=== PATIENT | female | born 1930 | race Caucasian/White ===

== ENCOUNTER 2016-07-11 19:59 | Emergency (ER) | payer OTHER ==
[2016-07-11] MEDS ORDERED: ACETAMINOPHEN 500 MG TAB ONE (20:26)
[2016-07-11] MEDS ORDERED: ACETAMINOPHEN 500 MG TAB PO ONE (20:29)
--- NOTE | 2016-07-11 21:14 | EDPHY ---
H & P Stated Complaint: Fell and hurt left shoulder denies hitting head Source: Patient Exam Limitations: No limitations - Personal History Current Tetanus/Diphtheria Vaccine: Yes Current Tetanus Diphtheria and Acellular Pertussis (TDAP): Yes - Medical/Surgical History Hx Asthma: No Hx Chronic Respiratory Disease: No Hx Diabetes: No Hx Cardiac Disease: Yes Hx Renal Disease: No Hx Cirrhosis: No Hx Alcoholism: No Hx HIV/AIDS: No Hx Splenectomy or Spleen Trauma: No Other PMH: Afib, osteoporosis - Social History Smoking Status: Never smoked Time Seen by Provider: 07/11/16 20:16 HPI/ROS: CHIEF COMPLAINT: left arm pain HISTORY OF PRESENT ILLNESS: 86-year-old female presents emergency department after a mechanical trip and fall in her assisted living facility today. Patient reports she was walking fast down the carpeted hallway to the movie theater when her shoe got stuck on the carpet and she tripped and fell onto her right knee then onto her left arm. Patient was able to stand up with assistance and ambulate back to her room, she complains of significant pain in her left upper arm. Patient is [id number]. She denies head strike, no loss of consciousness, remembers the entire accident, no neck pain. Patient is on Pradaxa for atrial fibrillation. Patient has known osteoporosis. She has an abrasion to her right knee, tetanus is up-to-date. REVIEW OF SYSTEMS: A comprehensive 10 point review of systems is otherwise negative aside from elements mentioned in the history of present illness. (Krys Reid) - Physical Exam Exam: Physical Exam Gen: Alert and Oriented, NAD HEENT: PERRL, moist mucous membranes NECK: No C-spine tenderness to palpation CV: regular rate and regular rhythm PULM: CTAB, no wheezes ABDOMEN: soft, non tender to palpation, BS present BACK: No CVA tenderness NEURO: Neurologically grossly intact EXTREMITIES: Left upper arm with swelling, tenderness to palpation, subjective decreased sensation to deltoid, no elbow tenderness, 2+ radial pulses, cap refill less than 2 seconds, right knee with contusion,ecchymosis and abrasion to anterior knee, 2+ pedal pulses, full range of motion. SKIN: Superficial abrasion to anterior right knee PSYCH: answers questions appropriately. (Krys Reid) Constitutional: Initial Vital Signs Temperature (C) 36.7 C 07/11/16 20:03 Heart Rate 79 07/11/16 20:03 Respiratory Rate 16 07/11/16 20:03 Blood Pressure 147/71 H 07/11/16 20:03 O2 Sat (%) 98 07/11/16 20:03 O2 Delivery Mode Room Air Allergies/Adverse Reactions: ciprofloxacin Allergy (Verified 07/11/16 20:07) Rash sulfamethoxazole Allergy (Verified 07/11/16 20:07) trimethoprim Allergy (Verified 07/11/16 20:07) Home Medications: Medication Instructions Recorded Dabigatran Etexilate Mesylate 75 mg PO 07/11/16 [Pradaxa] Digoxin 07/11/16 Hydrocodone/APAP 5/325 [[place] 1 tab PO Q4H PRN #7 tab 07/11/16 5/325] Metoprolol Carey/Hydrochlorothiaz 07/11/16 [Metoprolol ER-Hctz 25-12.5 mg] Medical Decision Making - Diagnostics Imaging: Left upper arm x-ray independently reviewed by me- Impression: Angulated, displaced middiaphyseal shaft left humerus fracture. Dictated By: Quincy Crum MD Right knee x-ray independently reviewed by me- Impression: No evidence for acute fracture. Dictated By: Quincy Crum MD (Krys Reid) ED Course/Re-evaluation: 930pm- Dr. Day with orthopedics at bedside. 2300-Dr. Day has placed the patient has coaptation splint. He did a reduction and repeat x-ray shows better alignment. Patient will be discharged home with prescription for [place]. She is given strict return precautions for any neurovascular compromise. She is placed in a sling. She is given follow-up information. (Krys Reid) Differential Diagnosis: Differential diagnosis includes but not limited to fracture, contusion, abrasion (Krys Reid) Other Provider: The patient wasevaluatedand managed by themidlevel provider. Idiscussed the patient's presentation and course with thephysicianassistantor nurse practitionerand agree with theevaluation. My co-signature indicates that I have reviewed this chart and I agree with the findings and plan of care as documented. I am the secondary supervisingphysician. (Ibis Flaherty) - Data Points Medications Given: Discontinued Medications Acetaminophen (Tylenol) 1,000 mg PO EDNOW ONE Stop: 07/11/16 20:30 Last Admin: 07/11/16 20:30 Dose: 1,000 mg Hydrocodone Bitart/Acetaminophen ([place] 5/325mg Prepack#6) 1 btl TAKEHOME EDNOW ONE Stop: 07/11/16 22:57 Last Admin: 07/11/16 23:09 Dose: 1 btl Departure - Departure Disposition: Home, Routine, Self-Care Clinical Impression: Left humeral fracture Condition: Good Instructions: Hydrocodone/Acetaminophen (By mouth), Arm Fracture in Adults (ED) Additional Instructions: Wear sling for comfort, take 650 mg of Tylenol every 8 hours with food for pain , take 1 [place] every 4-6 hours as needed for severe pain. This has Tylenol in it. Do not take more than 3000 mg of Tylenol in 24 hours. Follow up with Dr. day as discussed with him in the office in 2 weeks. Call tomorrow to schedule this appointment. Return to the emergency department for any numbness or tingling in your hand, pain that is not controlled, any new symptoms or concerns. Referrals: Keith Day MD [Medical Doctor] - As per Instructions (Orthopedist on-call) Prescriptions: Hydrocodone/APAP 5/325 [[place] 5/325] 1 tab PO Q4H PRN #7 tab PRN Reason: Pain, Moderate
--- NOTE | 2016-07-11 22:35 | PDCONSULT ---
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 also fell onto Right knee. No prior trauma to Left shoulder. PMHx: Afib on pradaxa. 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 ROS: in good health. Denies problems other than MSK hx. Recently decreasing pradaxa due to anticipated dental work. No new problems with head, pulmonary, cardiovascular, GI, , Skin, psych, neuro. PE: NAD. AxOx3. unlabored breathing. LUE: [place] A/R/U/M. 4/5 EPL/APB/FDS/FDP2,5/IO, 2+ rad pulse. Skin intact, no bleeding. mild edema. no evidence of hematoma Motion through fracture site. NO TTP at shoulder joint. RLE: abrasion on knee. Doesn't probe to bursa. No knee effusion. Active extensor complex without pain. No tenderness along knee cap including inferior pole Imaging: long, spiral fracture of L humerus. R knee: calcification vs. avulsion fragment, old of inferior patella. asymptomatic. no effusion seen. A/P: 86y F on pradaxa p/w L humerus fracture - Placed into coaptation splint. LORRAINE KEY. Sling for comfort - RTC in 2 weeks for films in splint and likely change to berry splint - Pain control - Plan for nonop treatment of humerus fracture. We discussed risks/benefits of op vs nonop treatment, and she agrees with nonop. She understands that goals are for union and basic alignment but risks are for nonunion/malunion.
[2016-07-11] MEDS ORDERED: HYDROCOD/APAP 5/325 PREPACK#6 BTL TAKEHOME ONE (22:56)
[2016-07-11 23:14] VITALS: BP 135/85; PULSE 82; RESP 12; TEMP 98.4; O2SAT 99
== END 2016-07-11 23:14 | disposition home or self-care (01) ==
DX: S42.302A Unspecified fracture of shaft of humerus, left arm, initial encounter for closed fracture (principal); W01.198A Fall on same level from slipping, tripping and stumbling with subsequent striking against other object, initial encounter; Y92.89 Other specified places as the place of occurrence of the external cause; Y99.8 Other external cause status; Y93.01 Activity, walking, marching and hiking
CPT/HCPCS: 73060; 73564; 99284; A4565

== ENCOUNTER 2016-07-15 18:17 | Emergency (ER) | payer OTHER ==
[2016-07-15 18:28] VITALS: RESP 16
--- NOTE | 2016-07-15 20:00 | EDPHY ---
H & P Time Seen by Provider: 07/15/16 18:55 HPI/ROS: CHIEF COMPLAINT: arm recheck HISTORY OF PRESENT ILLNESS: 86-year-old female presents to the emergency department recheck of her left arm. Patient was seen 2 days ago in the emergency department after mechanical trip and fall. She has a midshaft humeral fracture that was reduced and placed in a coaptation splint by Dr. day with orthopedics. The patient takes Pradaxa for atrial fibrillation, she is concerned about the bruising and swelling in her forearm and hand. She denies increased in pain, no numbness or tingling to her hand, no other complaints. REVIEW OF SYSTEMS: A comprehensive 10 point review of systems is otherwise negative aside from elements mentioned in the history of present illness. Smoking Status: Never smoked Physical Exam: GEN: Awake, alert, oriented, no acute distress RESP: nl resp effort MSK: Left arm and coaptation splint, Ramesh wraps removed, left forearm with swelling and ecchymosis that extends down to dorsal aspect of hands and stops at MCP joints, compartments are soft, 2+ radial pulses, sensation intact to light touch SKIN: No break in skin, no warmth, no evidence of cellulitis Constitutional: Initial Vital Signs Temperature (C) 36.7 C 07/15/16 18:24 Heart Rate 78 07/15/16 18:24 Respiratory Rate 16 07/15/16 18:24 Blood Pressure 167/85 H 07/15/16 18:24 O2 Sat (%) 96 07/15/16 18:24 O2 Delivery Mode Room Air Allergies/Adverse Reactions: ciprofloxacin Allergy (Verified 07/11/16 20:07) Rash sulfamethoxazole Allergy (Verified 07/11/16 20:07) trimethoprim Allergy (Verified 07/11/16 20:07) Home Medications: Medication Instructions Recorded Dabigatran Etexilate Mesylate 75 mg PO 07/11/16 [Pradaxa] Digoxin 07/11/16 Hydrocodone/APAP 5/325 [[place] 1 tab PO Q4H PRN #7 tab 07/11/16 5/325] Metoprolol Carey/Hydrochlorothiaz 07/11/16 [Metoprolol ER-Hctz 25-12.5 mg] MDM/Departure - MDM ED Course/Re-evaluation: 86-year-old female presents with the concerned of her bruising to her arm after a humerus fracture and splint placement in the emergency department 2 days ago. Patient takes Pradaxa for atrial fibrillation. She has no evidence of compartment syndrome, neurovascularly intact. I considered and discussed with the patient stopping her Pradaxa for few days though the risks of this and getting a stroke outweigh the concern of the ecchymosis and hematoma from the fracture. Patient has an appointment with Dr. Wynne on July 26, she will see Dr. Castellanos on Tuesday for re-evaluation of her arm. She has been given strict return precautions for any neurovascular compromise or compartment syndrome symptoms. Differential Diagnosis: Diagnosis considered but not limited to ecchymosis from fracture, compartment syndrome, cellulitis - Depart Disposition: Home, Routine, Self-Care Clinical Impression: Aftercare for cast or splint check or change Condition: Good Instructions: Splint Care (ED) Additional Instructions: Elevate your arm as much as possible on pillows, keep compression wrap on forearm, wrap starting at fingers up to your elbow with 50% overlap. Loosen this if it is too tight. Warm compresses to forearm, ice to your upper arm. Continue taking your pain medication as you have been. Follow up with Dr. Wynne as scheduled on July 26. Follow up with Dr. Castellanos on Tuesday for re- evaluation of hematoma on arm. Return to the emergency department for any pain that is not controlled, numbness or tingling in your hand, any other questions or concerns. Referrals: Elen Castellanos MD [Primary Care Provider] - As per Instructions Trung Wynne MD [Medical Doctor] - As per Instructions
[2016-07-15] MEDS ORDERED: HYDROCOD/APAP 5/325 PREPACK#6 BTL TAKEHOME ONE (20:12)
[2016-07-15 20:26] VITALS: BP 157/79; PULSE 82; TEMP 99.1; O2SAT 95
== END 2016-07-15 20:26 | disposition home or self-care (01) ==
DX: Z46.89 Encounter for fitting and adjustment of other specified devices (principal)

== ENCOUNTER 2016-07-19 11:13 | Emergency (ER) | payer OTHER ==
[2016-07-19 11:19] VITALS: TEMP 97.7
--- NOTE | 2016-07-19 11:35 | CPEKG ---
Heart Rate: 82 RR Interval: 732 QRSD Interval: 80 QT Interval: 328 QTC Interval: 383 QRS [place]: 57 T Wave [place]: -56 EKG Severity - ABNORMAL ECG - EKG Impression: ATRIAL FIBRILLATION, V-RATE 68-90 EKG Impression: ABNORMAL T, CONSIDER ISCHEMIA, DIFFUSE LEADS Electronically Signed By: Nick Gould 19-Jul-2016 15:29:25
[2016-07-19 11:50] VITALS: RESP 19
--- NOTE | 2016-07-19 12:05 | EDPHY ---
H & P Stated Complaint: L Chest pain, worse on inspiration, SOB since 0900 Time Seen by Provider: 07/19/16 12:05 - Personal History Current Tetanus/Diphtheria Vaccine: Unsure Current Tetanus Diphtheria and Acellular Pertussis (TDAP): Unsure - Medical/Surgical History Hx Asthma: No Hx Chronic Respiratory Disease: No Hx Diabetes: No Hx Cardiac Disease: Yes Hx Renal Disease: No Hx Cirrhosis: No Hx Alcoholism: No Hx HIV/AIDS: No Hx Splenectomy or Spleen Trauma: No Other PMH: Afib, osteoporosis, L humerous fx - Social History Smoking Status: Never smoked Constitutional: Initial Vital Signs Temperature (C) 36.5 C 07/19/16 11:17 Heart Rate 95 07/19/16 11:17 Respiratory Rate 18 07/19/16 11:17 Blood Pressure 113/53 L 07/19/16 11:17 O2 Sat (%) 96 07/19/16 11:17 O2 Delivery Mode Room Air Allergies/Adverse Reactions: ciprofloxacin Allergy (Verified 07/19/16 11:19) Rash sulfamethoxazole Allergy (Verified 07/19/16 11:19) trimethoprim Allergy (Verified 07/19/16 11:19) Home Medications: Medication Instructions Recorded Dabigatran Etexilate Mesylate 75 mg PO 07/11/16 [Pradaxa] Digoxin 07/11/16 Hydrocodone/APAP 5/325 [[place] 1 tab PO Q4H PRN #7 tab 07/11/16 5/325] Metoprolol Carey/Hydrochlorothiaz 07/11/16 [Metoprolol ER-Hctz 25-12.5 mg] Medical Decision Making - Diagnostics Imaging: Imaging Impressions Chest/Thorax CTA 07/19/16 12:47 Impression: 1. No evidence for pulmonary embolus. 2. Mild cardiomegaly. Probable mild congestive heart failure. Patchy groundglass opacity in both lower lobes, which could represent early pulmonary edema. 3. Stable apical pleural thickening bilaterally. Small pulmonary nodules bilaterally and evidence of prior granulomatous disease, which is stable and can be considered benign. 4. Other chronic findings as above. Results called and discussed with Dr. Nick Gould, on July 19, 2016 at 1355 hours. . ED Course/Re-evaluation: CHIEF COMPLAINT: Dyspnea, chest pain HISTORY OF PRESENT ILLNESS: The patient is an anticoagulated 86 y/o female complaining of left arm chest pain that radiates to her left shoulder since 09:00 this morning, about 3 hours ago. She has a history of atrial fibrillation and osteoporosis. She was recently evaluated here for a displaced left humerus fracture 8 days ago secondary to a fall. She was reduced and immobilized and discharged to follow up with orthopedics as an outpatient. She returned a few days later for a recheck due to ecchymosis and swelling of her left hand. This was thought secondary to her Pradaxa and she was discharged in good condition. Around 09:00 this morning, she developed left-sided chest and shoulder pain that is aggravated by deep inspiration and associated with poorly-localized back pain. She rates her pain 10/10 in severity. She denies weakness, paresthesias, fever, chills, recent illness, or other recent trauma. REVIEW OF SYSTEMS: A 10 point review of systems was performed and is negative with the exception of the elements mentioned in the history of present illness. PHYSICAL EXAM: HR, BP, O2 Sat, RR. Temp noted General Appearance: Alert, well hydrated, appropriate, and non-toxic appearing. Head: Atraumatic without scalp tenderness or obvious injury Eyes: Pupils equal, round, reactive to light and accommodation, EOMI, no trauma , no injection. Ears: Clear bilaterally, no perforation, normal landmarks Nose: Atraumatic, no rhinorrhea, clear. Throat: There is no erythema or exudates, no lesions, normal tonsils, mucus membranes moist. Neck: Supple, nontender, no lymphadenopathy. Respiratory: No retractions, no distress, no wheezes, and no accessory muscle use. Lung sounds are mildly diminished on the left side. Voluntary splinting Cardiovascular: Regular rate and rhythm, no murmurs, rubs, or gallops. Good capillary refill all extremities. Gastrointestinal: Abdomen is soft, nontender, non-distended, no masses, no rebound, no guarding, no peritoneal signs. Musculoskeletal: Normal active ROM of all extremities, atraumatic. Swelling and ecchymosis of left hand. Neurological: Alert, appropriate, and interactive. The patient has normal DTRs and non-focal cranial nerves, motor, sensory, and cerebellar exam. Skin: No rashes, good turgor, no nodules on palpation. Past medical history: atrial fibrillation - Pradaxa, osteoporosis, left humerus fracture Past surgical history: denies Family history: noncontributory Social history: Nonsmoker. family at bedside. Prior medical records reviewed including ED visit 07/15/16 for arm fracture recheck. DIAGNOSTICS/PROCEDURES/CRITICAL CARE TIME: CTA chest, left humerus x-ray. I viewed the images myself on the PACS system. The 12 lead EKG was interpreted by myself. Atrial fibrillation rate 82. See hard copy and/or "tracemaster" electronic copy for interpretation. DIFFERENTIAL DIAGNOSIS: The differential diagnosis for the patient's shortness of breath and hypoxemia included but was not limited to pneumonia, myocardial infarction, acute mountain sickness, high altitude pulmonary edema, congestive heart failure, and pulmonary embolus. MEDICAL DECISION MAKING: This is an anticoagulated 86 y/o female with recent left humerus fracture complaining of left-sided chest pain and dyspnea onset this morning. Besides ongoing ecchymosis and swelling in her left arm and minor diminished left breath sounds and voluntary splinting, her exam is unremarkable. Because she is currently on Pradaxa, her risk of thrombotic PE is less likely, though fat emboli is still possible. She only had extremity imaging on her first visit and it is possible she has rib injuries from the initial fall. Plan for pain management, chest CTA, IV, labs including d-dimer, BNP, and troponin. 1350: CTA negative for acute process other than CHF, which is consistent with her elevated BNP. No PE per Dr. Crum, radiologist. I discussed findings with her and the family and answered all her questions. They have a follow up appointment scheduled with Dr. Sherrell alfonso. Daughter requests repeat left humerus x-ray to reevaluate fracture prior to discharge home. X-ray is unchanged. Patient will be discharged home with script for pain medications and return precautions. They are comfortable with this plan. - Data Points Laboratory Results: Laboratory Results 07/19/16 11:35 07/19/16 11:35 07/19/16 07/19/16 07/19/16 11:35 11:35 11:35 WBC 14.59 10^3/uL H 10^3/uL (3.80-9.50) RBC 4.52 10^6/uL 10^6/uL (4.18-5.33) Hgb 14.0 g/dL g/dL (12.6-16.3) Hct 42.0 % % (38.0-47.0) MCV 92.9 fL fL (81.5-99.8) MCH 31.0 pg pg (27.9-34.1) MCHC 33.3 g/dL g/dL (32.4-36.7) RDW 14.4 % % (11.5-15.2) Plt Count 312 10^3/uL 10^3/uL (150-400) MPV 10.1 fL fL (8.7-11.7) Neut % (Auto) 85.0 % H % (39.3-74.2) Lymph % (Auto) 5.1 % L % (15.0-45.0) [place] % (Auto) 9.2 % % (4.5-13.0) Eos % (Auto) 0.1 % L % (0.6-7.6) Baso % (Auto) 0.1 % L % (0.3-1.7) Nucleat RBC Rel Count 0.0 % % (0.0-0.2) Absolute Neuts (auto) 12.41 10^3/uL H 10^3/uL (1.70-6.50) Absolute Lymphs (auto) 0.74 10^3/uL L 10^3/uL (1.00-3.00) Absolute Monos (auto) 1.34 10^3/uL H 10^3/uL (0.30-0.80) Absolute Eos (auto) 0.01 10^3/uL L 10^3/uL (0.03-0.40) Absolute Basos (auto) 0.02 10^3/uL 10^3/uL (0.02-0.10) Absolute Nucleated RBC 0.00 10^3/uL 10^3/uL (0-0.01) Immature Gran % 0.5 % % (0.0-1.1) Immature Gran # 0.07 10^3/uL 10^3/uL (0.00-0.10) D-Dimer 0.86 ug/mLFEU H ug/mLFEU (0.00-0.50) Sodium 134 mEq/L mEq/L (134-144) Potassium 4.5 mEq/L mEq/L (3.5-5.2) Chloride 98 mEq/L mEq/L (97-110) Carbon Dioxide 24 mEq/l mEq/l (22-31) Anion Gap 12 mEq/L mEq/L (8-16) BUN 25 mg/dL H mg/dL (7-23) Creatinine 1.0 mg/dL mg/dL (0.6-1.0) Estimated GFR 53 Glucose 160 mg/dL H mg/dL (70-100) Calcium 10.0 mg/dL mg/dL (8.5-10.4) Troponin I 0.013 ng/mL ng/mL (0-0.034) NT-Pro-B Natriuret Pep 2940 pg/mL H pg/mL (0-450) Medications Given: Discontinued Medications Morphine Sulfate (Morphine) 2 mg IVP EDNOW ONE Stop: 07/19/16 13:06 Last Admin: 07/19/16 13:06 Dose: 2 mg Ondansetron HCl (Zofran) 4 mg IVP EDNOW ONE Stop: 07/19/16 13:06 Last Admin: 07/19/16 13:06 Dose: 4 mg Departure - Departure Disposition: Home, Routine, Self-Care Clinical Impression: Chest pain Qualifiers: Chest pain type: other chest pain Qualified Code(s): R07.89 - Other chest pain ; R07.8 - Other chest pain Left humeral fracture Qualifiers: Encounter type: subsequent encounter Humerus Location: shaft Fracture type: closed Fracture morphology: transverse Fracture alignment: displaced Fracture healing: with routine healing Qualified Code(s): S42.322D - Displaced transverse fracture of shaft of humerus, left arm, subsequent encounter for fracture with routine healing Condition: Good Instructions: Arm Fracture in Adults (ED), Chest Pain (ED), Constipation (ED), High Fiber Diet (ED) Additional Instructions: 1. Use Vicodin as prescribed. You can use 1 pill every 6 hours. Take constipation precautions as soon as starting narcotics. Miralax, available over- the-counter, is a good option. 2. Follow up with your orthopedist as planned. 3. Return to the ED for any worsening of condition. Referrals: Elen Castellanos MD [Primary Care Provider] - As per Instructions Trung Wynne MD [Medical Doctor] - As per Instructions Report Scribed for: Nick Gould Report Scribed by: Mervat Norris Date of Report: 07/19/16 Time of Report: 12:19
[2016-07-19 12:28] LABS: % IMMATURE GRANULYOCYTES 0.5 % (0.0-1.1); ABSOLUTE IMMATURE GRANULOCYTES 0.07 10^3/uL (0.00-0.10); ADD DIFF? NO; ADD MORPH? NO; ADD SCAN? NO; ATYPICAL LYMPHOCYTE FLAG 0 (0-99); FRAGMENT RBC FLAG 0 (0-99); LEFT SHIFT FLG 10 (0-99); LIPEMIA HEMOLYSIS FLAG 80 (0-99); MEAN CELL HEMOGLOBIN CONCENTR. 33.3 g/dL (32.4-36.7); MEAN CELL VOLUME 92.9 fL (81.5-99.8); MEAN PLATELET VOLUME 10.1 fL (8.7-11.7); PLATELET CLUMPS FLAG 0 (0-99); PLATELET COUNT 312 10^3/uL (150-400); RED BLOOD CELL COUNT 4.52 10^6/uL (4.18-5.33); RED CELL DISTRIBUTION WIDTH 14.4 % (11.5-15.2)
[2016-07-19 12:42] LABS: ANION GAP 12 mEq/L (8-16); CARBON DIOXIDE 24 mEq/l (22-31); CHLORIDE 98 mEq/L (97-110); GLOMERULAR FILTRATION RATE 53; GLUCOSE 160 mg/dL (70-100); POTASSIUM 4.5 mEq/L (3.5-5.2); SODIUM 134 mEq/L (134-144)
[2016-07-19 12:55] LABS: TROPONIN I 0.013 ng/mL (0-0.034)
[2016-07-19] MEDS ORDERED: IOPAMIDOL (ISOVUE 370) 100 ML BTL IV ONE (12:58)
[2016-07-19] MEDS ORDERED: ONDANSETRON 4 MG/2 ML VIAL ONE (12:58)
[2016-07-19] MEDS ORDERED: ONDANSETRON 4 MG/2 ML VIAL IVP ONE (13:05)
[2016-07-19 15:32] VITALS: BP 125/72; PULSE 88; O2SAT 98
== END 2016-07-19 15:32 | disposition home or self-care (01) ==
DX: R07.89 Other chest pain (principal); S42.322D Displaced transverse fracture of shaft of humerus, left arm, subsequent encounter for fracture with routine healing; Z79.01 Long term (current) use of anticoagulants; W19.XXXD Unspecified fall, subsequent encounter
CPT/HCPCS: 71275; 73060; 93005; 96374; 96375; 99285; J2405; Q9967

== ENCOUNTER 2016-07-29 12:52 | Inpatient (IN) | payer OTHER ==
[2016-07-29] MEDS ORDERED: ONDANSETRON 4 MG/2 ML VIAL IVP PRN (15:20)
[2016-07-29] MEDS ORDERED: oxyCODONE IR 5 MG TAB PO PRN (15:20)
[2016-07-29] MEDS ORDERED: ONDANSETRON DISINTEGRATING 4 MG TAB PO PRN (15:20)
[2016-07-29 15:50] LABS: % IMMATURE GRANULYOCYTES 0.8 % (0.0-1.1); ADD DIFF? NO; ADD MORPH? NO; ADD SCAN? NO; ATYPICAL LYMPHOCYTE FLAG 50 (0-99); FRAGMENT RBC FLAG 0 (0-99); HEMATOCRIT 37.2 % (38.0-47.0); HEMOGLOBIN 12.5 g/dL (12.6-16.3); LEFT SHIFT FLG 10 (0-99); LIPEMIA HEMOLYSIS FLAG 80 (0-99); MEAN CELL HEMOGLOBIN 30.8 pg (27.9-34.1); MEAN CELL HEMOGLOBIN CONCENTR. 33.6 g/dL (32.4-36.7); MEAN CELL VOLUME 91.6 fL (81.5-99.8); MEAN PLATELET VOLUME 8.8 fL (8.7-11.7); PLATELET CLUMPS FLAG 10 (0-99); PLATELET COUNT 483 10^3/uL (150-400); RED BLOOD CELL COUNT 4.06 10^6/uL (4.18-5.33); RED CELL DISTRIBUTION WIDTH 14.3 % (11.5-15.2)
[2016-07-29 16:00] LABS: INR 2.22 (0.83-1.16); PROTIME(PATIENT) 24.8 SEC (12.0-15.0)
--- NOTE | 2016-07-29 16:22 | GHP ---
[f rep st] HISTORY AND PHYSICAL DATE OF ADMISSION: 07/29/2016 HISTORY OF PRESENT ILLNESS: The patient is a pleasant 86-year-old female with a history of atrial f ibrillation and a mechanical fall about 2 weeks ago with humerus fracture. She has done poorly sinc e. She was seen initially here on the , where she had an angulated, displaced mid diaphyseal lef t humerus fracture, images interpreted by me. She was sent home in a cast. She was seen by Orthope dics, who supervised the nonweightbearing left upper extremity. Since then, she has had some weakne ss, poor appetite, and constipation. She had increased pain on the , which is 8 days after inju ry, including chest and back pain. She presented to our ER, where she had a CAT scan negative for p ulmonary embolism, possible congestive heart failure. She also had an EKG at that time interpreted by me, showing AFib, which is chronic for her, with some inferior T-wave inversions. She continued to be at home and she had an appoint with Dr. Castellanos, her primary care physician today, where she was overall doing poorly and admission to the hospital was advised. The patient denies urgency, frequency, dysuria, fever, chills, PND, orthopnea, lower extremity edema , or weight gain. She had her last bowel movement this morning, but they are small and difficult to achieve. She has not noted palpitations or other chest pain. She has not been short of breath. She does not wear oxygen at home. She does not have fevers. It sounds like she has been spending a fair amount more time in bed than typical. Her baseline stat us is living independently at the [facility], and her daughter has been staying with her. She is much more sedentary than usual. REVIEW OF SYSTEMS: Complete 10-point review of systems was conducted and negative except as noted i n the HPI. PAST MEDICAL HISTORY: Atrial fibrillation, osteoporosis. ALLERGIES: Cipro and sulfa. MEDICATIONS: Metoprolol, Pradaxa, digoxin, multivitamin. SOCIAL HISTORY: No tobacco. Minimal alcohol. Lives at [facility]. FAMILY HISTORY: Daughter is present at the bedside, healthy. Parents are . PHYSICAL EXAM: VITAL SIGNS: Temp 36.8, blood pressure 107/50, pulse 72, breathing 18 times a minut e, 95% on room air. GENERAL: No acute distress. HEENT: Sclerae are anicteric. Oropharynx clear. Mucous membranes are moist. NECK: Supple. No lymphadenopathy or JVD. LUNGS: Clear to ausculta tion anterolaterally. HEART: S1, S2. It is actually quite regular. ABDOMEN: Soft, nontender, no ndistended. LOWER EXTREMITIES: Without edema. Her left upper extremity is in a cast. Her hand sh ows no edema. Cap refill is intact. IMAGING: She had a CTA of the chest. Images reviewed and interpreted by me on the 10th showing no pulmonary embolism, possible heart failure. She had a humerus x-ray also on the 10th showing good approximation of the angulated fragments with some slight displacement. LABORATORY DATA: She had labs on the 10th showing a white count of 14.5, hematocrit of 42, platelet s of 312,000. D-dimer 0.86. Normal chem 7 other than a slightly elevated BUN at 25, creatinine 1.0 with a baseline of that. She had a BNP of 2940 at that time, 10 days ago, with the only previous v alue being 6 years prior at 1640. I have discussed the case Dr. Elen Castellanos, reviewed and summarized prior records. ASSESSMENT/PLAN: An 86-year-old female with a recent humerus fracture who presented with failure to thrive. 1. Failure to thrive. This is multifactorial. I suspect this is most likely secondary to rapid de conditioning that happens in the elderly with long-bone fractures. We will have PT and OT see her. 2. Constipation. T.i.d. MiraLAX until she stools. 3. Atrial fibrillation. I wonder if she has been having rapid atrial fibrillation contributing to this presentation. I will follow her on telemetry. 4. Heart failure. Clinically, the patient does not have heart failure. I will check a BNP now. A t this time, I will not diurese her. 5. Previous labs showing possible dehydration. Await the labs today. She looks roughly euvolemic on labs, and I will not give her fluid until these labs are back. 6. Prophylaxis. She is on Pradaxa. 7. Fall in anticoagulated elderly patient. The patient at this point time has a CHADS-VASc of 3. With age and prior transient ischemic attack, we will continue her therapy at this time. DISPOSITION: Inpatient status. CODE: DNR. /[id number]/MODL
[2016-07-29] MEDS: ACETAMINOPHEN 500 MG TAB PO SCH ×2 (16:26→22:01)
[2016-07-29 16:37] LABS: ANION GAP 9 mEq/L (8-16); CALCIUM 8.4 mg/dL (8.5-10.4); CARBON DIOXIDE 23 mEq/l (22-31); CHLORIDE 100 mEq/L (97-110); CREATININE 0.7 mg/dL (0.6-1.0); DIGOXIN 1.3 ng/mL (0.8-2.0); GLOMERULAR FILTRATION RATE > 60; GLUCOSE 109 mg/dL (70-100); POTASSIUM 4.8 mEq/L (3.5-5.2); SODIUM 132 mEq/L (134-144)
[2016-07-29] MEDS: POLYETHYLENE GLYCOL 3350 17 GM PKT PO SCH (17:47)
[2016-07-29] MEDS: DABIGATRAN ETEXILATE MESYL 150 MG CAP PO SCH (22:00)
[2016-07-29] MEDS: METOPROLOL TARTRATE 25 MG TAB PO SCH (22:00)
[2016-07-30] MEDS: POLYETHYLENE GLYCOL 3350 17 GM PKT PO SCH ×3 (00:58→15:55)
[2016-07-30 04:39] LABS: % IMMATURE GRANULYOCYTES 0.7 % (0.0-1.1); ABSOLUTE IMMATURE GRANULOCYTES 0.07 10^3/uL (0.00-0.10); ADD DIFF? NO; ADD MORPH? NO; ADD SCAN? NO; ATYPICAL LYMPHOCYTE FLAG 50 (0-99); FRAGMENT RBC FLAG 10 (0-99); HEMOGLOBIN 11.8 g/dL (12.6-16.3); LEFT SHIFT FLG 0 (0-99); LIPEMIA HEMOLYSIS FLAG 80 (0-99); MEAN CELL HEMOGLOBIN 30.2 pg (27.9-34.1); MEAN CELL HEMOGLOBIN CONCENTR. 33.7 g/dL (32.4-36.7); MEAN CELL VOLUME 89.5 fL (81.5-99.8); MEAN PLATELET VOLUME 8.9 fL (8.7-11.7); PLATELET CLUMPS FLAG 0 (0-99); PLATELET COUNT 515 10^3/uL (150-400); RED BLOOD CELL COUNT 3.91 10^6/uL (4.18-5.33); RED CELL DISTRIBUTION WIDTH 14.4 % (11.5-15.2)
[2016-07-30 04:55] LABS: ANION GAP 6 mEq/L (8-16); CALCIUM 8.3 mg/dL (8.5-10.4); CARBON DIOXIDE 23 mEq/l (22-31); CHLORIDE 105 mEq/L (97-110); CREATININE 0.7 mg/dL (0.6-1.0); GLOMERULAR FILTRATION RATE > 60; GLUCOSE 91 mg/dL (70-100); POTASSIUM 4.3 mEq/L (3.5-5.2); SODIUM 134 mEq/L (134-144)
[2016-07-30] MEDS: ACETAMINOPHEN 500 MG TAB PO SCH ×3 (06:12→23:25)
[2016-07-30] MEDS: MULTIVITAMINS 1 EACH TAB PO SCH (07:47)
[2016-07-30] MEDS: DABIGATRAN ETEXILATE MESYL 150 MG CAP PO SCH ×2 (07:47→23:25)
[2016-07-30] MEDS ORDERED: Herbals/Supplements -Info Only PO SCH (09:00)
[2016-07-30] MEDS ORDERED: DIGOXIN 125 MCG TAB PO SCH (10:00)
--- NOTE | 2016-07-30 12:03 | HOSPPROG ---
Hospitalist Progress Note Assessment/Plan: 86 yo F w AF, recent humerus fracture admitted w FTT, apin FTT: suspect deconditioning in setting of advanced age and sitting for 2.5 weeks dig level normal, labs OK no evidence of uncontrolled AF on monitor AF w pause: had 5 second pause overnight she has good HR augmentation w exercise (89 after ambulation) so its not clear what role this has in her presentation, but I do wonder if it didnt contribute to or cause her original fall mike agents noted, held this AM cardiology to see constipation: resolved pain: well controlled on current meds dispo: inpt Subjective: case d/w dr calderon. tele: 5 second pause overnight (interp by me) Objective: Vital Signs Temp Pulse Resp BP Pulse Ox 36.4 C 69 20 114/52 L 95 07/30/16 07:38 07/30/16 07:38 07/30/16 07:38 07/30/16 07:38 07/30/16 07:38 Laboratory Results 07/30/16 03:54 07/30/16 03:54 07/29/16 07/30/16 07/31/16 05:59 05:59 05:59 Intake Total 800 Output Total 200 Balance 600 PT 24.8 SEC (12.0-15.0) H 07/29/16 15:43 INR 2.22 (0.83-1.16) H 07/29/16 15:43 - Physical Exam Constitutional: no apparent distress, appears nourished Eyes: PERRL, anicteric sclera Ears, Nose, Mouth, Throat: moist mucous membranes, hearing normal Cardiovascular: regular rate and rhythym, no murmur, rub, or gallop, No systolic murmur Respiratory: no respiratory distress, no rales or rhonchi Gastrointestinal: normoactive bowel sounds, soft, non-tender abdomen Genitourinary: No flores in urethra Skin: warm, normal color Musculoskeletal: other (L hand neurovascularly intact. sig edema over R bicep) Neurologic: AAOx3, sensation intact bilaterally Psychiatric: interacting appropriately, not anxious ICD10 Worksheet Patient Problems: Problems Problem Status Onset Atrial fibrillation Acute
[2016-07-30] MEDS: METOPROLOL TARTRATE 25 MG TAB PO SCH ×2 (12:26→19:56)
--- NOTE | 2016-07-30 13:13 | CPEKG ---
Heart Rate: 83 RR Interval: 723 QRSD Interval: 84 QT Interval: 352 QTC Interval: 414 QRS [place]: 59 T Wave [place]: 238 EKG Severity - ABNORMAL ECG - EKG Impression: ATRIAL FIBRILLATION, V-RATE 71-90 EKG Impression: REPOL ABNRM SUGGESTS ISCHEMIA, LATERAL LEADS Electronically Signed By: Laz Arambula 31-Jul-2016 10:45:52
--- NOTE | 2016-07-30 14:51 | PDCARCONS ---
Cardiology Consult Reason for Consult: Atrial fibrillation with lengthy pause Chief Complaint: No cardiovascular complaints. Requesting Physician: Hospitalist History of Present Illness: Patient is an 86 y/o female with long standing history of atrial fibrillation ( on Pradaxa, [id number] score of 4 for age, HTN (potentially), and sex) and possible HTN (on therapy), but no HLP, CAD, or DM, who presents back to [facility] with failure to thrive post relatively recent left humorous fracture. Patient reports today that she has been doing well, but fatigue and weakness along with constipation and general Failure to Thrive led to the admission, primarily for observation. Overnight, the patient was noted to have a five second pause on telemetry, and cardiology was called to discuss options. Today, the patient was resting comfortably in chair, eating lunch. Daughter was present in the room with the patient today. No complaints of chest pains or pressure, no PND or orthopnea. Compliance with prescribed medications has been good. No abnormal bleeding or bruising has been noted with ongoing use of Pradaxa. Ortho follow up is scheduled given the recent left upper extremity fracture. No symptoms were noted with the event (noted at 3-4 am this morning) . Given this finding, Hospitalist called on cardiology to provide recommendations. Review of systems (ten point) was unremarkable less that which was mentioned above. Patient is a DNR. History Information - Allergies/Home Medication List Allergies/Adverse Reactions: ciprofloxacin Allergy (Verified 07/19/16 11:19) Rash Sulfa (Sulfonamide Antibiotics) Allergy (Verified 07/29/16 14:09) Rash Home Medications: Digoxin [Lanoxin 125 mcg (RX)] 125 mcg PO DAILY10 07/11/16 [Last Taken 07/29/16] Dabigatran Etexilate Mesyl [Pradaxa 150 MG (*)] 150 mg PO BID 07/29/16 [Last Taken 07/29/16] Herbals/Supplements -Info Only 1 ea PO DAILY 07/29/16 [Last Taken Unknown] Hydrocodone/APAP 5/325 [[place] 5/325] 1 each PO Q6HRS PRN 07/29/16 [Last Taken 09:00 0.5 tab] Metoprolol Tartrate [Lopressor 25 mg (*)] 12.5 mg PO BID 07/29/16 [Last Taken ] Multivitamins [Multivitamin (*)] 1 each PO DAILY 07/29/16 [Last Taken Unknown] I have personally reviewed and updated: family history, medical history, social history, surgical history - Past Medical History atrial fibrillation - Surgical History Reports: no pertinent surgical hx - Family History Positive for: non-pertinent - Social History Smoking Status: Never smoked Alcohol Use: None Drug Use: None Cardiac History - Cardiac History Past Cardiac History: OTHER (atrial fibrillation) Cardiac Risk Factors: age > 65 Timing/Duration: Other (No symptoms reported) Severity Scale: 1 Location: other (No symptoms) Activities at Onset: none Modifying Factors: improves with: rest Associated Symptoms: denies symptoms OMARI Risk Evaluation age greater or equal to 65: yes greater or equal to 3 CAD risk factors: no known CAD(stenosis greater or eqaul to 50%): no ASA use in past 7 days: no severe angina(greater or equal to 2 episodes in 24hrs): no EKG ST changes greater or equal to 0.5mm: no positive cardiac marker: no Total Score: 1 OMARI Score: 4.7% risk Age in Years: 75 or older Sex: Female Congestive Heart Failure History: No Hypertension History: No Stroke/TIA/Thromboembolism History: No Vascular Disease History: No Diabetes Mellitus: No [id number] Score: 5 Physical Exam Temp Pulse Resp BP Pulse Ox 36.6 C 88 16 96/71 L 95 07/30/16 13:02 07/30/16 13:02 07/30/16 13:02 07/30/16 13:02 07/30/16 13:02 Constitutional: no apparent distress, appears nourished Eyes: PERRL Ears, Nose, Mouth, Throat: moist mucous membranes, hearing normal Cardiovascular: irregularly irregular, No systolic murmur, No edema Peripheral Pulses: 2+: dorsalis-pedis (R), dorsalis-pedis (L) Respiratory: no respiratory distress, no rales or rhonchi, clear to auscultation Gastrointestinal: normoactive bowel sounds Skin: warm, no induration, No rash Musculoskeletal: no muscle tenderness, other (left upper extremity with pain) Neurologic: AAOx3, sensation intact bilaterally, CN II-XII Intact Psychiatric: interacting appropriately, not anxious, not encephalopathic Lab and Imaging 07/30/16 03:54 07/30/16 03:54 WBC 10.50 10^3/uL (3.80-9.50) H 07/30/16 03:54 RBC 3.91 10^6/uL (4.18-5.33) L 07/30/16 03:54 Hgb 11.8 g/dL (12.6-16.3) L 07/30/16 03:54 Hct 35.0 % (38.0-47.0) L 07/30/16 03:54 MCV 89.5 fL (81.5-99.8) 07/30/16 03:54 MCH 30.2 pg (27.9-34.1) 07/30/16 03:54 MCHC 33.7 g/dL (32.4-36.7) 07/30/16 03:54 RDW 14.4 % (11.5-15.2) 07/30/16 03:54 Plt Count 515 10^3/uL (150-400) H 07/30/16 03:54 MPV 8.9 fL (8.7-11.7) 07/30/16 03:54 Neut % (Auto) 81.4 % (39.3-74.2) H 07/30/16 03:54 Lymph % (Auto) 6.7 % (15.0-45.0) L 07/30/16 03:54 [place] % (Auto) 9.5 % (4.5-13.0) 07/30/16 03:54 Eos % (Auto) 1.3 % (0.6-7.6) 07/30/16 03:54 Baso % (Auto) 0.4 % (0.3-1.7) 07/30/16 03:54 Nucleat RBC Rel Count 0.0 % (0.0-0.2) 07/30/16 03:54 Absolute Neuts (auto) 8.55 10^3/uL (1.70-6.50) H 07/30/16 03:54 Absolute Lymphs (auto) 0.70 10^3/uL (1.00-3.00) L 07/30/16 03:54 Absolute Monos (auto) 1.00 10^3/uL (0.30-0.80) H 07/30/16 03:54 Absolute Eos (auto) 0.14 10^3/uL (0.03-0.40) 07/30/16 03:54 Absolute Basos (auto) 0.04 10^3/uL (0.02-0.10) 07/30/16 03:54 Absolute Nucleated RBC 0.00 10^3/uL (0-0.01) 07/30/16 03:54 Immature Gran % 0.7 % (0.0-1.1) 07/30/16 03:54 Immature Gran # 0.07 10^3/uL (0.00-0.10) 07/30/16 03:54 PT 24.8 SEC (12.0-15.0) H 07/29/16 15:43 INR 2.22 (0.83-1.16) H 07/29/16 15:43 Sodium 134 mEq/L (134-144) 07/30/16 03:54 Potassium 4.3 mEq/L (3.5-5.2) 07/30/16 03:54 Chloride 105 mEq/L (97-110) 07/30/16 03:54 Carbon Dioxide 23 mEq/l (22-31) 07/30/16 03:54 Anion Gap 6 mEq/L (8-16) L 07/30/16 03:54 BUN 19 mg/dL (7-23) 07/30/16 03:54 Creatinine 0.7 mg/dL (0.6-1.0) 07/30/16 03:54 Estimated GFR > 60 07/30/16 03:54 Glucose 91 mg/dL (70-100) 07/30/16 03:54 Calcium 8.3 mg/dL (8.5-10.4) L 07/30/16 03:54 NT-Pro-B Natriuret Pep 2290 pg/mL (0-450) H 07/29/16 15:43 Digoxin 1.3 ng/mL (0.8-2.0) 07/29/16 15:43 EKG Interpretation: Positive for: other (atrial fibrillation with non specific ST/T wave changes noted) Telemetry: Atrial fibrillation. Pause of about 5 seconds was noted early this morning. No symptoms noted with this event A/P Assessment: Patient is an 86 y/o female with history of atrial fibrillation, on Pradaxa with rate control assistance from digoxin and metoprolol, who presented to [facility] with failure to thrive post left upper extremity fracture. Ongoing use of NOAC therapy without abnormal bleeding for CVA risk of 4-5% per year. Overnight, a 5 second, asymptomatic pause was noted. Underlying ST/T wave changes have also been noted. Long discussion with patient and daughter about several options given the finding noted. Plan: It is unclear if the patient might be having similar pauses at home given the time of the event and the lack of symptoms. Cessation of both digoxin and metoprolol would likely lead to both accelerated heart rates as well as blood pressure elevation. It is a class I indication for PPM implant with a five second, asymptomatic pause, but there is more to discuss. The patient is over the age of 80, but relatively highly functioning. Would consider PPM implant, but with notable baseline ST/T wave changes, angiography should be addressed as well. These options were discussed at length with patient and daughter both. At present, they do not wish to pursue these tests or treatment options. They understand the risks of not doing so. I have encouraged both to have follow up with cardiology, in the outpatient setting for further discussion about the tests and the ramifications of not pursuing cardiology recommendations. The patient is very coherent and aware of the potential benefits of testing as well as the risks of not testing. An in depth discussion has been had, and the patient and daughter wish to discuss further, and think about the options presented, which I feel is a very appropriate decision.
[2016-07-31] MEDS: POLYETHYLENE GLYCOL 3350 17 GM PKT PO SCH ×4 (01:12→20:40)
[2016-07-31] MEDS: ACETAMINOPHEN 500 MG TAB PO SCH ×3 (06:13→20:36)
[2016-07-31 09:08] LABS: % IMMATURE GRANULYOCYTES 0.6 % (0.0-1.1); ABSOLUTE IMMATURE GRANULOCYTES 0.08 10^3/uL (0.00-0.10); ADD DIFF? NO; ADD MORPH? NO; ADD SCAN? NO; ATYPICAL LYMPHOCYTE FLAG 80 (0-99); FRAGMENT RBC FLAG 0 (0-99); HEMATOCRIT 36.1 % (38.0-47.0); HEMOGLOBIN 12.2 g/dL (12.6-16.3); LEFT SHIFT FLG 0 (0-99); LIPEMIA HEMOLYSIS FLAG 90 (0-99); MEAN CELL HEMOGLOBIN 30.6 pg (27.9-34.1); MEAN CELL HEMOGLOBIN CONCENTR. 33.8 g/dL (32.4-36.7); MEAN CELL VOLUME 90.5 fL (81.5-99.8); MEAN PLATELET VOLUME 9.2 fL (8.7-11.7); PLATELET CLUMPS FLAG 10 (0-99); PLATELET COUNT 565 10^3/uL (150-400); RED BLOOD CELL COUNT 3.99 10^6/uL (4.18-5.33); RED CELL DISTRIBUTION WIDTH 14.3 % (11.5-15.2)
--- NOTE | 2016-07-31 09:59 | PDCARPN ---
Cardiology Progress Note Chief Complaint: asymptomatic bradycardia and 5 second ventricular pause during atrial fibrillation Assessment/Plan: Assessment: Atrial fibrillation, permanent Plan: - Patient had a ventricular pause of 5 seconds while on metoprolol and digoxin. Metoprolol and digoxin were held, last night she had ventricular rates down into the 30s (but the drugs had only been held for 24 hours.) I am going to discontinue the drugs. Had a discussion with both patient and her daughter regarding their wish to avoid pacemaker if possible. I am going to stop her Pradaxa and start her on Lovenox in anticipation of possibly needing permanent pacing, last dose of Lovenox Tuesday. As such, we need to wait for 48 hours prior to doing her pacemaker, this has tentatively been scheduled for Tuesday. If after stopping her metoprolol and digoxin, her heart rate stabilizes, we will leave her off these drugs and may be able to avoid pacemaker. However, if she becomes tachycardic and drugs need to be resumed, would recommend that she have a pacemaker implantation On Tuesday. - Stress testing to be done as an outpatient. 07/31/16 10:00 Subjective: patient is asymptomatic Reviewed/Discussed With: family, multidisciplinary team, other ( patient's nurse ) Time Spent With Patient: 20 minutes Objective: Vital Signs (8 Hrs) Temp Pulse Resp BP Pulse Ox 07/31/16 03:26 36.5 C 69 20 126/60 H 96 Intake/Output (24 Hrs) 07/29/16 07/30/16 07/31/16 11:59 11:59 11:59 Intake Total 800 420 Output Total 200 Balance 600 420 Intake: Oral (ml) 800 420 Output: Urine (ml) 200 Toilet 200 Other: Weight 52 kg Intake Quantity Yes Sufficient Number of Voids Toilet 1 2 Number of Stools Toilet 1 2 Result Diagrams: 07/31/16 08:32 07/30/16 03:54 Telemetry: atrial fibrillation, bradycardia with heart rate in 30s at night, patient asymptomatic at that time. ICD10 Worksheet Patient Problems: Problems Problem Status Onset Atrial fibrillation Acute - ICD10 Problem Qualifiers (1) Atrial fibrillation Qualifiers: Atrial fibrillation type: A
[2016-07-31 10:34] LABS: ANION GAP 11 mEq/L (8-16); CALCIUM 8.9 mg/dL (8.5-10.4); CARBON DIOXIDE 21 mEq/l (22-31); CHLORIDE 106 mEq/L (97-110); CREATININE 0.7 mg/dL (0.6-1.0); GLOMERULAR FILTRATION RATE > 60; GLUCOSE 98 mg/dL (70-100); POTASSIUM 4.4 mEq/L (3.5-5.2); SODIUM 138 mEq/L (134-144)
[2016-07-31] MEDS: DABIGATRAN ETEXILATE MESYL 150 MG CAP PO SCH (10:36)
[2016-07-31] MEDS: MULTIVITAMINS 1 EACH TAB PO SCH (10:36)
[2016-07-31] MEDS: METOPROLOL TARTRATE 25 MG TAB PO SCH (10:37)
[2016-07-31] MEDS: ENOXAPARIN 60 MG/0.6 ML SYR SC SCH ×2 (10:38→20:37)
--- NOTE | 2016-07-31 11:30 | HOSPPROG ---
Hospitalist Progress Note Assessment/Plan: 86 yo F w AF, recent humerus fracture admitted w FTT, apin FTT: suspect deconditioning in setting of advanced age and sitting for 2.5 weeks dig level normal, labs OK no evidence of uncontrolled AF on monitor continue pt/ot likely will benefit from a snf AF w pause: had 5 second pause overnight she has good HR augmentation w exercise (89 after ambulation) so its not clear what role this has in her presentation, but I do wonder if it didnt contribute to or cause her original fall mike agents noted, now stopped follow X 48 hours to see if further pauses and/or uncontrolled AF requiring mike agents if either occur, will need pacer constipation: resolved pain: well controlled on current meds proph: anticoagulated dispo: inpt Subjective: telemetry: no pause (interp by me). case d/w dr alex Objective: Vital Signs Temp Pulse Resp BP Pulse Ox 36.5 C 69 20 126/60 H 96 07/31/16 03:26 07/31/16 03:26 07/31/16 03:26 07/31/16 03:26 07/31/16 03:26 Laboratory Results 07/31/16 08:32 07/31/16 08:32 07/30/16 07/31/16 08/01/16 05:59 05:59 05:59 Intake Total 800 420 Output Total 200 Balance 600 420 PT 24.8 SEC (12.0-15.0) H 07/29/16 15:43 INR 2.22 (0.83-1.16) H 07/29/16 15:43 - Physical Exam Constitutional: no apparent distress, appears nourished, not in pain Eyes: PERRL, anicteric sclera Ears, Nose, Mouth, Throat: moist mucous membranes, hearing normal Cardiovascular: regular rate and rhythym, no murmur, rub, or gallop, No systolic murmur Respiratory: no respiratory distress, no rales or rhonchi Gastrointestinal: normoactive bowel sounds, soft, non-tender abdomen Genitourinary: No flores in urethra Skin: warm, normal color Musculoskeletal: other (LUE w edema, but neurovascularly intact) Neurologic: AAOx3, sensation intact bilaterally Psychiatric: interacting appropriately ICD10 Worksheet Patient Problems: Problems Problem Status Onset Atrial fibrillation Acute
[2016-08-01] MEDS: ACETAMINOPHEN 500 MG TAB PO SCH ×3 (06:20→21:27)
[2016-08-01] MEDS: POLYETHYLENE GLYCOL 3350 17 GM PKT PO SCH ×2 (10:26→20:07)
[2016-08-01] MEDS: MULTIVITAMINS 1 EACH TAB PO SCH (10:26)
[2016-08-01] MEDS: ENOXAPARIN 60 MG/0.6 ML SYR SC SCH ×2 (10:26→21:27)
--- NOTE | 2016-08-01 11:15 | PDCARPN ---
Cardiology Progress Note Chief Complaint: 86 year old female with permanent atrial fibrillation who had a recent left humerous fracture due to a trip and fall who was found to have an aysmptomatic pause of 5 seconds while sleeping in the night. She had been on metoprolol and digoxin for rate control, both of which, were stoppped yesterday. She remains in rate controlled afib today. No evidence of RVR. Review of telemetry demonstrates frequent pauses of approx 2 seconds. Asymptomatic. She is feeling well this AM. no complaints. Assessment/Plan: Assessment: 1. Permanent Afib 2. Bradycardia 3. Frequent pauses at night around 2 seconds (no new pauses of 5 seconds) asymptomatic Plan: -continue Lovenox 50 mg sub q bid ( LAST dose this PM in consideration for pacer tomorrow) -no metoprolol or digoxin -NPO after midnight -Decision on pacer will depend on telemetry findings over the next 24 hours -30 min spent with pt and her daughter and coordinating care. 08/01/16 11:16 Reviewed/Discussed With: family Time Spent With Patient: 30 minutes Objective: Vital Signs (8 Hrs) Temp Pulse Resp BP Pulse Ox 08/01/16 07:08 36.7 C 78 17 87/52 L 93 08/01/16 03:25 36.4 C 70 16 131/66 H 97 Intake/Output (24 Hrs) 07/31/16 08/01/16 08/02/16 05:59 05:59 05:59 Intake Total 420 300 Balance 420 300 Intake: Oral (ml) 420 300 Other: Intake Quantity Yes No Sufficient Number of Voids Toilet 2 2 1 Number of Stools Toilet 2 1 1 Result Diagrams: 07/31/16 08:32 07/31/16 08:32 - Physical Exam Constitutional: no apparent distress Ears, Nose, Mouth, Throat: moist mucous membranes Cardiovascular: no murmurs, no rubs, no gallops, irregularly irregular Peripheral Pulses: 2+: carotid (R), carotid (L) Respiratory: clear to auscultate bilat Skin: no rashes, no edema Neurologic: AAOx3, CN II-XII grossly intact Psychiatric: cooperative, interactive, following commands ICD10 Worksheet Patient Problems: Problems Problem Status Onset Atrial fibrillation Acute
--- NOTE | 2016-08-01 12:52 | HOSPPROG ---
Hospitalist Progress Note Assessment/Plan: 86 yo F w AF, recent humerus fracture admitted w FTT, apin FTT: suspect deconditioning in setting of advanced age and sitting for 2.5 weeks dig level normal, labs OK no evidence of uncontrolled AF on monitor continue pt/ot to SN[facility] when decision on pacer made AF w pause: had 5 second pause overnight she has good HR augmentation w exercise (89 after ambulation) so its not clear what role this has in her presentation, but I do wonder if it didnt contribute to or cause her original fall- although she does describe this as a mechanical fall mike agents noted, now stopped follow X 48 hours to see if further long pauses and/or uncontrolled AF requiring mike agents if either occur, will need pacer constipation: resolved pain: well controlled on current meds proph: anticoagulated dispo: inpt Subjective: case d/w dr jacobo. tele: no long pauses, no rapid AF (interp by me) Objective: Vital Signs Temp Pulse Resp BP Pulse Ox 36.6 C 78 20 110/53 L 93 08/01/16 12:00 08/01/16 12:00 08/01/16 12:00 08/01/16 12:00 08/01/16 12:00 Laboratory Results 07/31/16 08:32 07/31/16 08:32 07/31/16 08/01/16 08/02/16 05:59 05:59 05:59 Intake Total 420 300 Balance 420 300 PT 24.8 SEC (12.0-15.0) H 07/29/16 15:43 INR 2.22 (0.83-1.16) H 07/29/16 15:43 - Physical Exam Constitutional: no apparent distress, not in pain Ears, Nose, Mouth, Throat: moist mucous membranes, hearing normal Cardiovascular: regular rate and rhythym, no murmur, rub, or gallop Respiratory: no respiratory distress, no rales or rhonchi Gastrointestinal: normoactive bowel sounds, soft, non-tender abdomen Genitourinary: No flores in urethra Skin: warm, normal color Musculoskeletal: full muscle strength, no muscle tenderness Neurologic: AAOx3 ICD10 Worksheet Patient Problems: Problems Problem Status Onset Atrial fibrillation Acute
[2016-08-01 23:20] VITALS: O2SAT 95
[2016-08-02] MEDS: POLYETHYLENE GLYCOL 3350 17 GM PKT PO SCH ×2 (01:23→10:22)
[2016-08-02] MEDS: ACETAMINOPHEN 500 MG TAB PO SCH ×2 (05:09→08:38)
[2016-08-02] MEDS: ENOXAPARIN 60 MG/0.6 ML SYR SC SCH (07:02)
--- NOTE | 2016-08-02 09:11 | PDCARPN ---
Cardiology Progress Note Assessment/Plan: Assessment: permanent atrial fibrillation Plan: 86-year-old female with permanent atrial fibrillation. She had ventricular pauses up to 5 seconds noted last week. We stopped her metoprolol and digoxin over the weekend. Since then her average ventricular rates have remained below 100 while ventricular pauses have decreased to less than 3 seconds. She is asymptomatic. There is no indication for permanent pacemaker at this time. Procedure will be canceled. She should be left off any AV mike blocking agents . She has been instructed not to take her metoprolol and digoxin. Her Pradaxa will be resumed today. She has been asked to follow up with me in 3 months. She will have a 24 hour Holter monitor prior to seeing me. If she has any symptoms of dizziness or syncope she will report them to us immediately. She should have a stress test as an outpatient. 08/02/16 09:09 Subjective: Patient reports no symptoms. Her son and her daughter at the bedside. Nurse was also present in the room. Reviewed/Discussed With: family, other Time Spent With Patient: 15 minutes Objective: Vital Signs (8 Hrs) Temp Pulse Resp BP Pulse Ox 08/02/16 07:13 36.7 C 70 16 114/52 L 95 08/02/16 04:00 36.4 C 76 16 110/66 95 Intake/Output (24 Hrs) 07/31/16 08/01/16 08/02/16 11:59 11:59 11:59 Intake Total 420 300 570 Balance 420 300 570 Intake: Oral (ml) 420 300 570 Other: Intake Quantity Yes No Yes Sufficient Number of Voids Toilet 2 1 3 Number of Stools Incontinence 1 Toilet 2 1 1 Result Diagrams: 07/31/16 08:32 07/31/16 08:32 Telemetry: atrial fibrillation with ventricular pauses up to 2 seconds ICD10 Worksheet Patient Problems: Problems Problem Status Onset Atrial fibrillation Acute - ICD10 Problem Qualifiers (1) Atrial fibrillation Qualifiers: Atrial fibrillation type: A
[2016-08-02] MEDS: MULTIVITAMINS 1 EACH TAB PO SCH (10:21)
[2016-08-02] MEDS ORDERED: DABIGATRAN ETEXILATE MESYL 150 MG CAP PO SCH (10:30)
--- NOTE | 2016-08-02 11:15 | HOSPPROG ---
Hospitalist Progress Note Assessment/Plan: 86 yo F w AF, recent humerus fracture admitted w FTT, [facility] FTT: suspect deconditioning in setting of advanced age and sitting for 2.5 weeks dig level normal, labs OK no evidence of uncontrolled AF on monitor continue pt/ot to SNF when decision on pacer made AF w pause: had 5 second pause overnight she has good HR augmentation w exercise (89 after ambulation) so its not clear what role this has in her presentation, but I do wonder if it didnt contribute to or cause her original fall- although she does describe this as a mechanical fall mike agents noted, now stopped follow X 48 hours to see if further long pauses and/or uncontrolled AF requiring mike agents if either occur, will need pacer diarrhea: back off on miralax pain: well controlled on current meds proph: anticoagulated dispo: inpt Subjective: no long pauses. no pacer- discussed w dr alex Objective: Vital Signs Temp Pulse Resp BP Pulse Ox 36.7 C 70 16 114/52 L 95 08/02/16 07:13 08/02/16 07:13 08/02/16 07:13 08/02/16 07:13 08/02/16 07:13 Laboratory Results 07/31/16 08:32 07/31/16 08:32 08/01/16 08/02/16 08/03/16 05:59 05:59 05:59 Intake Total 300 570 Balance 300 570 PT 24.8 SEC (12.0-15.0) H 07/29/16 15:43 INR 2.22 (0.83-1.16) H 07/29/16 15:43 - Physical Exam Constitutional: no apparent distress, appears nourished Eyes: PERRL, anicteric sclera Ears, Nose, Mouth, Throat: moist mucous membranes, hearing normal Cardiovascular: regular rate and rhythym, no murmur, rub, or gallop Respiratory: no respiratory distress, no rales or rhonchi Gastrointestinal: normoactive bowel sounds, soft, non-tender abdomen, No guarding, No rebound Genitourinary: No flores in urethra Skin: warm, normal color Musculoskeletal: No full muscle strength Neurologic: AAOx3 Psychiatric: interacting appropriately Lymph, Heme, Immunologic: no cervical LAD ICD10 Worksheet Patient Problems: Problems Problem Status Onset Atrial fibrillation Acute
--- NOTE | 2016-08-02 11:20 | PDIAF ---
- Diagnosis Diagnosis: humerus fracture Code Status: Do Not Resuscitate - Medication Management Discharge Medications: Medications to Continue on Transfer Digoxin [Lanoxin 125 mcg (RX)] 125 mcg PO DAILY10 07/11/16 [Last Taken 07/29/16] Dabigatran Etexilate Mesyl [Pradaxa 150 MG (*)] 150 mg PO BID 07/29/16 [Last Taken 07/29/16] Herbals/Supplements -Info Only 1 ea PO DAILY 07/29/16 [Last Taken Unknown] Hydrocodone/APAP 5/325 [[place] 5/325] 1 each PO Q6HRS PRN 07/29/16 [Last Taken 09:00 0.5 tab] Metoprolol Tartrate [Lopressor 25 mg (*)] 12.5 mg PO BID 07/29/16 [Last Taken ] Multivitamins [Multivitamin (*)] 1 each PO DAILY 07/29/16 [Last Taken Unknown] Discharge Medications: Refer to the Discharge Home Medication list for PRN reason. - Orders Services needed: Registered Nurse, Certified [employer] Officer, Physical Therapy, Occupational Therapy - Follow Up Care Current Providers and Referrals: Elen Castellanos MD [Primary Care Provider] -
--- NOTE | 2016-08-02 11:37 | GDS ---
[f rep st] DISCHARGE SUMMARY DISCHARGE DIAGNOSES: 1. Recent humerus fracture. 2. Failure to thrive. 3. Constipation. 4. Atrial fibrillation. 5. Six-second pause. 6. Constipation, now resolved. 7. Deconditioning. HOSPITAL COURSE: Please see admission history and physical by Dr. Jj Andrew. The patient pres ented from the outpatient clinic with failure to thrive following an attempted outpatient management of a humerus fracture. On presentation, she had a normal digoxin level. She was not in congestive heart failure. Her atrial fibrillation was not rapid. She did have one 6-second pause in the setting of being on both digoxin and b.i.d. metoprolol, albei t both at low doses. She was seen by Cardiology, and there was a discussion whether or not she shou ld get a pacemaker. Ultimately what happened, the mike agents were held; the 6-second pause went a way. She was having a couple of 1-second pauses, and she declined pacer at this point. It is impor tant to note that her fall that led to the humerus fracture was really consistent with a mechanical fall as opposed to a syncopal event. The patient was constipated. She received t.i.d. MiraLAX for a number of days. She was having liqu id stool today, so it will be held. She is discharged to [facility] for ongoing rehabilitation. Manuel mcintyre had her mike agents (digoxin and metoprolol) discontinued. She will follow up with Cardiology on a p.r.n. basis. The patient had no rapid atrial fibrillation following discontinuation of metoprol ol and digoxin. /[id number]/MODL
[2016-08-02 12:25] VITALS: BP 115/53; PULSE 75; RESP 18; TEMP 98
== END 2016-08-02 13:41 | DRG 310 ==
LOC: F2W 13:05 → OBSVTOIN 15:27
PROVIDERS: ADMIT Internal Medicine; ATTEND Internal Medicine
DX: I48.91 Unspecified atrial fibrillation (principal); S42.322D Displaced transverse fracture of shaft of humerus, left arm, subsequent encounter for fracture with routine healing; K59.00 Constipation, unspecified; Z66 Do not resuscitate; Z79.01 Long term (current) use of anticoagulants; W19.XXXD Unspecified fall, subsequent encounter
CPT/HCPCS: 97116-GP; 97162-GP; 97166-GO; 97535-GO; G8978-GP-CK; G8979-GP-CI; G8987-GO-CK; G8988-GO-CI; J1650

== ENCOUNTER → 2017-01-28 | Outpatient (CLI) | payer OTHER | LOC: CIMAGING 07:18 | PROVIDERS: ATTEND Family Medicine | DX: R74.0 Nonspecific elevation of levels of transaminase and lactic acid dehydrogenase [LDH] (principal); R74.8 Abnormal levels of other serum enzymes; K80.20 Calculus of gallbladder without cholecystitis without obstruction | CPT/HCPCS: 76705-PO ==

== ENCOUNTER → 2017-03-01 | Outpatient (CLI) | payer OTHER | LOC: FIMAGING 09:49 | PROVIDERS: ATTEND Family Medicine | DX: Z12.31 Encounter for screening mammogram for malignant neoplasm of breast (principal) | CPT/HCPCS: G0202 ==

== ENCOUNTER → 2017-05-31 | Outpatient (CLI) | payer OTHER | LOC: FIMAGING 15:06 | PROVIDERS: ATTEND Family Medicine | DX: Z13.820 Encounter for screening for osteoporosis (principal); M81.0 Age-related osteoporosis without current pathological fracture; Z79.83 Long term (current) use of bisphosphonates; Z78.0 Asymptomatic menopausal state ==

== ENCOUNTER → 2018-05-10 | Outpatient (CLI) | payer OTHER | LOC: FIMAGING 15:26 | PROVIDERS: ATTEND Family Medicine | DX: Z12.31 Encounter for screening mammogram for malignant neoplasm of breast (principal) ==